=== PATIENT | female | born 1960 | race Caucasian/White ===

== ENCOUNTER → 2018-08-23 | Emergency (ER) | payer MEDICARE, OTHER ==
[~2018-08-23] VITALS: Ht 175.3 cm; Wt 173.6 kg
[~2018-08-23] MED LIST: HYDR-4383 PO; HYDROcodone/acetaminophen 10/325mg tab PO ONE; LIDOcaine 1% w/epiNEPHrine 1:200,000 30ml vial IM ONE
[2018-08-23 14:48] VITALS: BP 150/82
== END | disposition home or self-care (01) ==
LOC: ER 14:19
DX: K04.7 Periapical abscess without sinus (principal); K03.81 Cracked tooth; J45.909 Unspecified asthma, uncomplicated; E03.9 Hypothyroidism, unspecified; M19.90 Unspecified osteoarthritis, unspecified site; Z98.890 Other specified postprocedural states; Z88.1 Allergy status to other antibiotic agents; Z79.899 Other long term (current) drug therapy
CPT/HCPCS: 41800; 99283; J3490; 10060

== ENCOUNTER 2018-09-06 14:08 | Emergency (ER) | payer MEDICARE, OTHER ==
[~2018-09-06] VITALS: Ht 175.3 cm; Wt 172.7 kg
[~2018-09-06 14:08] MED LIST changes: -HYDROcodone/acetaminophen 10/325mg tab PO ONE; -LIDOcaine 1% w/epiNEPHrine 1:200,000 30ml vial IM ONE
[2018-09-06 17:11] LABS: BASOPHILS # (AUTO) 0.1 X10'3 (0-0.2); BASOPHILS % (AUTO) 0.7 % (0-1); EOSINOPHILS # (AUTO) 0.3 X10'3 (0-0.9); EOSINOPHILS % (AUTO) 3.9 % (0-6); HEMATOCRIT 40.5 % (35.0-45.0); HEMOGLOBIN 13.2 g/dl (12.0-16.0); LYMPHOCYTES # (AUTO) 2.4 X10'3 (1.1-4.8); LYMPHOCYTES % (AUTO) 32.5 % (21-51); MEAN CORPUSCULAR HEMOGLOBIN 27.4 PG (27.0-31.0); MEAN CORPUSCULAR HGB CONC 32.7 g/dL (33.0-36.5); MEAN CORPUSCULAR VOLUME 83.8 FL (78-98); MEAN PLATELET VOLUME 8.9 FL (7.4-10.4); MONOCYTES # (AUTO) 0.5 X10'3 (0-0.9); MONOCYTES % (AUTO) 6.4 % (2-12); NEUTROPHILS # (AUTO) 4.1 X10'3 (1.8-7.7); NEUTROPHILS % (AUTO) 56.5 % (42-75); PLATELET COUNT 268 X10'3 (140-440); RED BLOOD COUNT 4.83 X10'6 (4.20-5.60); RED CELL DISTRIBUTION WIDTH 13.2 % (11.5-14.5); WHITE BLOOD COUNT 7.3 X10'3 (4.5-11.0)
[2018-09-06 17:25] LABS: ALANINE AMINOTRANSFERASE 66 U/L (12-78); ALBUMIN 3.5 G/DL (3.4-5.0); ALBUMIN/GLOBULIN RATIO 0.9 (1.1-1.5); ALKALINE PHOSPHATASE 82 IU/L (46-116); ANION GAP 6 (8-16); ASPARTATE AMINO TRANSFERASE 41 U/L (10-37); BILIRUBIN,TOTAL 0.5 MG/DL (0.1-1.0); BLOOD UREA NITROGEN 17 MG/DL (7-18); BUN/CREATININE RATIO 27.9 (6.6-38.0); CALCIUM 9.5 MG/DL (8.5-10.1); CHLORIDE 105 MMOL/L (99-107); CREATININE 0.61 MG/DL (0.40-0.90); GLUCOSE 116 MG/DL (70-104); SODIUM 141 MMOL/L (135-145); TOTAL CARBON DIOXIDE 29.7 MMOL/L (24-32); TOTAL PROTEIN 7.5 G/DL (6.4-8.2); eGFR > 90 ML/MIN
[2018-09-06] MEDS ORDERED: DOXY100C43 PO (17:55)
[2018-09-06 18:20] VITALS: BP 158/81
== END 2018-09-06 18:27 | disposition home or self-care (01) ==
LOC: ER 14:08
DX: S91.012A Laceration without foreign body, left ankle, initial encounter (principal); L03.116 Cellulitis of left lower limb; J45.909 Unspecified asthma, uncomplicated; E03.9 Hypothyroidism, unspecified; M19.90 Unspecified osteoarthritis, unspecified site; Z88.1 Allergy status to other antibiotic agents; X58.XXXA Exposure to other specified factors, initial encounter; Y93.89 Activity, other specified; Y92.89 Other specified places as the place of occurrence of the external cause; Y99.8 Other external cause status
CPT/HCPCS: 36415; 80053; 85025; 99283

== ENCOUNTER 2020-12-26 15:06 | Observation (INO) | payer MEDICARE, OTHER ==
[~2020-12-26] VITALS: Ht 175.3 cm; Wt 175.8 kg
--- NOTE | 2020-12-26 16:22 | NUR ---
Patient is awaiting a main bed in ED for a cardiac workup. order checker packer processer is working on this. This patient will be moved GAB[facility].
[2020-12-26] MEDS ORDERED: aspirin 81mg tab.chew PO ONE (16:25)
[2020-12-26] MEDS ORDERED: nitroGLYCERIN 0.4mg SUBLingual tab SL PRN ×2 (16:25→17:15)
--- NOTE | 2020-12-26 16:30 | NUR ---
ASA given, chew and swallow. Labs are being drawn.
[2020-12-26 16:47] LABS: BASOPHILS % (AUTO) 0.5 % (0-1); EOSINOPHILS # (AUTO) 0.3 X10'3 (0-0.9); EOSINOPHILS % (AUTO) 4.6 % (0-6); HEMATOCRIT 43.6 % (35.0-45.0); HEMOGLOBIN 14.3 g/dl (12.0-16.0); LYMPHOCYTES # (AUTO) 2.4 X10'3 (1.1-4.8); LYMPHOCYTES % (AUTO) 34.8 % (21-51); MEAN CORPUSCULAR HEMOGLOBIN 27.9 PG (27.0-31.0); MEAN CORPUSCULAR HGB CONC 32.8 g/dL (33.0-36.5); MEAN PLATELET VOLUME 8.6 FL (7.4-10.4); MONOCYTES # (AUTO) 0.5 X10'3 (0-0.9); MONOCYTES % (AUTO) 7.7 % (2-12); NEUTROPHILS # (AUTO) 3.7 X10'3 (1.8-7.7); NEUTROPHILS % (AUTO) 52.4 % (42-75); PLATELET COUNT 244 X10'3 (140-440); RED BLOOD COUNT 5.13 X10'6 (4.20-5.60); RED CELL DISTRIBUTION WIDTH 13.3 % (11.5-14.5)
[2020-12-26 16:58] LABS: ALANINE AMINOTRANSFERASE 54 U/L (12-78); ALBUMIN 3.6 G/DL (3.4-5.0); ALBUMIN/GLOBULIN RATIO 0.8 (1.1-1.5); ALKALINE PHOSPHATASE 74 IU/L (46-116); ANION GAP 8 (8-16); ASPARTATE AMINO TRANSFERASE 37 U/L (10-37); BILIRUBIN,TOTAL 0.5 MG/DL (0.1-1.0); BLOOD UREA NITROGEN 12 MG/DL (7-18); BUN/CREATININE RATIO 18.2 (6.6-38.0); CHLORIDE 107 MMOL/L (99-107); CREATININE 0.66 MG/DL (0.40-0.90); GLUCOSE 103 MG/DL (70-104); SODIUM 144 MMOL/L (135-145); TOTAL PROTEIN 7.9 G/DL (6.4-8.2); eGFR > 90 ML/MIN
[2020-12-26] MEDS ORDERED: metoprolol tartrate 1mg/ml inj IV PRN (17:15)
[2020-12-26] MEDS ORDERED: magnesium hydroxide 30ml (MOM) UD suspension PO PRN (17:15)
[2020-12-26] MEDS ORDERED: regadenoson 0.4mg/5ml syringe IV PRN (17:15)
[2020-12-26] MEDS ORDERED: mag hydrox/Alum hydrox/simeth 30ml oral suspension PO PRN (17:15)
[2020-12-26] MEDS: normal saline 1000ml 1,000 ML IV SCH (17:15)
[2020-12-26] MEDS ORDERED: morphine 2 MG/ML inj. syringe IV PRN ×2 (17:15)
[2020-12-26] MEDS ORDERED: ondansetron/PF 4mg/2ml inj IV PRN (17:15)
[2020-12-26] MEDS ORDERED: aminophylline 250mg/10ml inj. IV PRN (17:15)
[2020-12-26] MEDS ORDERED: acetaminophen 325mg tablet PO PRN (17:15)
[2020-12-26] MEDS ORDERED: NO HOME MEDS (17:28)
[2020-12-26] MEDS: docusate sod 100mg capsule PO SCH (20:00)
[2020-12-26] MEDS: heparin, porcine 5000 units/ml vial SQ SCH (20:56)
[2020-12-27] VITALS (9 sets, daily range): BP systolic 110–138; BP diastolic 53–82
[2020-12-27] MEDS: normal saline 1000ml 1,000 ML IV SCH ×2 (03:15→11:51)
--- NOTE | 2020-12-27 07:30 | NUR ---
Report attempted, TELLO Vincent to call back.
[2020-12-27 07:52] LABS: BASOPHILS % (AUTO) 0.7 % (0-1); EOSINOPHILS # (AUTO) 0.3 X10'3 (0-0.9); EOSINOPHILS % (AUTO) 4.3 % (0-6); HEMATOCRIT 42.7 % (35.0-45.0); HEMOGLOBIN 14.1 g/dl (12.0-16.0); LYMPHOCYTES % (AUTO) 32.8 % (21-51); MEAN CORPUSCULAR HEMOGLOBIN 28.1 PG (27.0-31.0); MEAN CORPUSCULAR VOLUME 85.1 FL (78-98); MEAN PLATELET VOLUME 8.3 FL (7.4-10.4); MONOCYTES # (AUTO) 0.4 X10'3 (0-0.9); MONOCYTES % (AUTO) 6.6 % (2-12); NEUTROPHILS # (AUTO) 3.3 X10'3 (1.8-7.7); NEUTROPHILS % (AUTO) 55.6 % (42-75); PLATELET COUNT 235 X10'3 (140-440); RED BLOOD COUNT 5.02 X10'6 (4.20-5.60); RED CELL DISTRIBUTION WIDTH 13.2 % (11.5-14.5)
--- NOTE | 2020-12-27 07:57 | NUR ---
Received patient report via phone from Lenka RN in ER. Called Nuc med they will come get patient at 0830 patient advised [facility]uc Med patient will be in room 0471S
[2020-12-27] MEDS ORDERED: aspirin 325mg tablet, delayed-release (Ecotrin) PO SCH (08:00)
[2020-12-27] MEDS: heparin, porcine 5000 units/ml vial SQ SCH (08:00)
[2020-12-27 08:23] LABS: ALBUMIN 3.6 G/DL (3.4-5.0); ANION GAP 8 (8-16); BLOOD UREA NITROGEN 14 MG/DL (7-18); BUN/CREATININE RATIO 21.9 (6.6-38.0); CHLORIDE 106 MMOL/L (99-107); CREATININE 0.64 MG/DL (0.40-0.90); GLUCOSE 117 MG/DL (70-104); POTASSIUM 4.2 MMOL/L (3.5-5.1); SODIUM 143 MMOL/L (135-145); TOTAL CARBON DIOXIDE 28.8 MMOL/L (24-32); eGFR > 90 ML/MIN
[2020-12-27 09:20] LABS: D-DIMER 0.63 MG/L FEU (0-0.50)
[2020-12-27] MEDS: docusate sod 100mg capsule PO SCH (12:00)
[2020-12-27 14:03] LABS: CHOL/HDL RATIO 3.1 (0.00-4.99); CHOLESTEROL 163 MG/DL (0-200); HDL CHOLESTEROL 53 MG/DL (35-60); LDL CHOLESTEROL 76 MG/DL (50-100); TRIGLYCERIDES 139 MG/DL (20-135)
--- NOTE | 2020-12-27 14:46 | NUR ---
PAGER ID: [phone] MESSAGE: Melisa-Deshawn [phone] Re: Kimi Dove saw patient per notes sounds like patient wants to do medical management. Patient would like to know if she can eat and the plan.
--- NOTE | 2020-12-27 15:10 | NUR ---
PAGER ID: [phone] MESSAGE: SaidaArnel [phone] Re: Duke Dove patient really really wants to eat and go home
[2020-12-27] MEDS ORDERED: ASPI-1071 PO (15:21)
--- NOTE | 2020-12-27 16:22 | NUR ---
Patient was under the impression that she was going to need to go home on Metoprolol. Spoke to Kimi HANCOCK for Dr Zavala patient is normal tensive and does not need any medication at this time she needs to follow up with a loan review manager. Patient made aware.
--- NOTE | 2020-12-27 17:00 | NUR ---
Patient discharge instructions reviewed with patient and patient verbalized understanding. Patients IV dc'd cannula intact. Patients Tele dc'd for discharged. Patient taken to vehicle via wheelchair where daughter was picking her up .
== END 2020-12-27 16:48 | disposition home or self-care (01) ==
LOC: ER 15:07 → ED HOLD 17:18 → PCU 3S 12-27 08:15
PROVIDERS: ADMIT Family Medicine; ATTEND Family Medicine
DX: I20.9 Angina pectoris, unspecified (principal); I48.0 Paroxysmal atrial fibrillation; I10 Essential (primary) hypertension; E66.01 Morbid (severe) obesity due to excess calories; G47.33 Obstructive sleep apnea (adult) (pediatric); M79.7 Fibromyalgia; J45.909 Unspecified asthma, uncomplicated; E03.9 Hypothyroidism, unspecified; F32.9 Major depressive disorder, single episode, unspecified; M19.90 Unspecified osteoarthritis, unspecified site; Z68.43 Body mass index [BMI] 50.0-59.9, adult; Z79.82 Long term (current) use of aspirin; Z88.1 Allergy status to other antibiotic agents
CPT/HCPCS: 36415; 71045; 78452; 80048; 80053; 80061; 83880; 84484; 85025; 85379; 93005; 93017; 93306; 96360; 96361; 96372; 99285; A9500; G0378; J1644; J2785; J7030

== ENCOUNTER 2025-04-06 06:35 | Emergency (ER) | payer MEDICARE, OTHER ==
[~2025-04-06] VITALS: Ht 175.3 cm; Wt 150.0 kg
[~2025-04-06 06:35] MED LIST changes: +ASPI-1071 PO; -HYDR-4383 PO
[2025-04-06 06:41] VITALS: TEMP 97.7
--- NOTE | 2025-04-06 07:30 | RADIOLOGY REPORT ---
CLINICAL INDICATION: trauma TECHNIQUE: DI KNEE 3 VWS right Comparison: None FINDINGS: Severe tricompartmental degenerative change. Small joint effusion. IMPRESSION: 1. No acute fracture or dislocation.
--- NOTE | 2025-04-06 07:58 | Physician Documentation ---
History of Present Illness ~ Chief Complaint: Knee Pain Stated Complaint: RIGHT KNEE PAIN M ALS Time Seen by MD: 06:42 OK to notify your PCP?: Yes Primary Medical Doctor: ALPA Source: patient, RN/MD, EMS, RN notes reviewed, old records Mode of Arrival: EMS Exam Limitations: no limitations HPI This pleasant 65-year-old female presents with 12 hours ago she was in severe pain unable to ambulate. She has had prior surgery to that knee. She is seen by [facility]. She presents with non weight-bearing activity she states her joint is loose. It is painful worse with movement non weight-bearing. She took some anti-inflammatories prior and this morning he is unable to ambulate she is now here for evaluation and care. Pain is sharp stabbing nonradiating Tetanus witin 5 years: Yes Medication Reconciliation Allergies: Coded Allergies: erythromycin base (Verified Allergy, Intermediate, rash, vomitting , 04/06/25) azithromycin (Verified Allergy, Unknown, 04/06/25) Scheduled Aspirin (Ecotrin*), 1 TAB PO DAILY Past Medical History Past Medical History: Asthma, Hypothyroidism, Arthritis, Depression Past Surgical History: , orthopedic surgeries Smoking Status: Never smoker Alcohol Use: None Drug Use: none Lives In: Home Review of Systems All Other Systems at this time: Reviewed and Negative Physical Exam Vital Signs: RN Vital Signs have been reviewed: Yes, Temperature: 97.7, Source: Oral, Heart Rate: 71, Respiratory Rate: 16, Pulse Oximetry: 97, Weight: 150.000 Oxygen Flow Rate: 0 Physical Exam General: The patient is well developed, well nourished, nontoxic appearing and is in no acute distress. Skin: Drain, warm and dry with no rashes. HEENT: Head was normocephalic and atraumatic. Eyes - pupils equal, round, reactive to light and accommodation. Extraocular movements were intact. Conjunctivae were nonicteric. Neck: Supple and nontender. There was no jugular venous distention, lymphadenopathy, thyromegaly or masses. Chest: Clear to auscultation bilaterally without wheezes, rales or rhonchi. No accessory muscle use. Heart: Rate regular and rhythmic. S1, S2. No murmurs. Palpation of the chest wall was normal. No rubs or thrills. Abdomen: Soft, nontender and nondistended. Positive bowel sounds. No guarding or rebound. Extremities: No cyanosis, clubbing or edema. The patient moves all extremities. Pulses were equal and symmetric. Right lower extremity no effusion no laxity of joint full range of motion passively nonweightbearing Neurologic: Motor sensory president back Psychologic: The patient was oriented to person, place and time. The patient demonstrated appropriate judgement and insight. Progress Results/Orders Reviewed/noted all lab results: Yes Results/Orders Orders - NICHOLAS GARIBAY MD Knee 3 Vws (04/06/25 06:42) Completed Orders - NICHOLAS GARIBAY MD Knee 3 Vws (04/06/25 06:42) Vital Signs 04/06/25 04/06/25 04/06/25 06:41 08:08 08:37 Temp 97.7 Pulse 71 62 62 Resp 16 16 14 B/P (MAP) 121/69 (86) 119/75 Pulse Ox 97 99 98 O2 Flow Rate 0 Re-Evaluation Re-Evaluation : Re-Evaluation: Improved Progress Patient was seen and examined. Patient was given reassurance. Patient received pain meds prior to arrival. X-ray was reassuring within normal limits. No signs of fracture effusion. Patient states she is not ambulatory nonweightbearing. Patient received a knee immobilizer crutches [id number] medications and discharged home. EKG/XRAY/CT/US/VASC/MRI Bone/Soft Tissue X-Ray (Ext.) : Interpreted By: both Views: 3 VIEW Additional Comment CLINICAL INDICATION: trauma TECHNIQUE: DI KNEE 3 VWS right Comparison: None FINDINGS: Severe tricompartmental degenerative change. Small joint effusion. IMPRESSION: 1. No acute fracture or dislocation. Electronically Signed by:LUIS WILSON MD Medical Decision Making Additional information obtaine: old records Findings Knee pain such as fractures frame strains infection General Diff Dx:Considerations: Include: Abrasion Knee Diff Dx:Considerations: Include: Abrasion, Contusion, DJD, Fracture-femur, Fracture-fibula, Fracture-patella, Fracture-tibia, Gout, Hematoma, Meniscus injury, Sprain, Sprain-MCL, Sprain-LCL, Sprain-ACL, Sprain-PCL, Other Ankle Diff Dx:Considerations: Include: Abrasion Foot Diff Dx:Considerations: Include: Abrasion Toe Diff Dx:Considerations: Include: Abrasion Departure Disposition: HOME / SELF CARE / HOMELESS Impression: Primary Impression: Knee pain Qualified Codes: M25.561 - Pain in right knee Condition: Stable Discharge Instructions: Acute Knee Pain, Adult Additional Instructions: Follow up with [facility] Anti-inflammatories [id number] for pain immobilize ice Referrals: NO PRIMARY CARE PROVIDER (PCP) Education Educated: Patient Educated regarding: diagnosis, treatment, prognosis, need for follow up, other Signature Scribe Signature: No scribed Attestation: The note accurately reflects work and decisions made by me.Nicholas Garibay MD 04/06/25 07:55 NICHOLAS GARIBAY MD Apr 06, 2025 07:58
[2025-04-06 08:37] VITALS: BP 119/75; PULSE 62; RESP 14; O2SAT 98
== END 2025-04-06 08:39 | disposition home or self-care (01) ==
LOC: ER 06:35
DX: M25.561 Pain in right knee (principal); E03.9 Hypothyroidism, unspecified; J45.909 Unspecified asthma, uncomplicated; M19.90 Unspecified osteoarthritis, unspecified site; F32.A Depression, unspecified; Z88.1 Allergy status to other antibiotic agents; Z79.82 Long term (current) use of aspirin
CPT/HCPCS: 29505; 73562; 99283

== ENCOUNTER 2025-05-04 12:55 | Emergency (ER) | payer MEDICARE, OTHER ==
[~2025-05-04] VITALS: Ht 175.3 cm; Wt 143.9 kg
[2025-05-04 13:05] VITALS: BP 173/74; PULSE 77; RESP 18; TEMP 98.4; O2SAT 99
[2025-05-04 13:38] LABS: CREATININE 0.73 MG/DL (0.40-0.90); MEAN PLATELET VOLUME 8.3 FL (7.4-10.4); RED CELL DISTRIBUTION WIDTH 13.2 % (11.5-14.5); TOTAL CARBON DIOXIDE 29.9 MMOL/L (24-32); eCRCL 82 ML/MIN; eGFR 81 ML/MIN
--- NOTE | 2025-05-04 14:05 | Physician Documentation ---
History of Present Illness ~ Chief Complaint: Bloody Emesis Stated Complaint: VOMITING BLOOD Time Seen by MD: 14:28 Primary Medical Doctor: ALPA MCADAMS This is a 65-year-old female who presents with concern for blood in vomit over the past month worse in the last week, patient reports blood is red streaked mixed with food and liquid, patient additionally reports dark stools and feeling of epigastric burning. 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 Medication Reconciliation Allergies: Coded Allergies: erythromycin base (Verified Allergy, Intermediate, rash, vomitting , 05/04/25) azithromycin (Verified Allergy, Unknown, 05/04/25) Scheduled Aspirin (Ecotrin*), 1 TAB PO DAILY Pantoprazole Sodium (PROTONIX tablet), 1 TAB PO DAILY Past Medical History Past Medical History: Asthma, Hypothyroidism, Arthritis, Depression Past Surgical History: , orthopedic surgeries Alcohol Use: None Drug Use: none Lives In: Home Review of Systems ROS As stated above in the HPI, otherwise all systems are reviewed and negative. Physical Exam Vital Signs: Temperature: 98.4, Source: Temporal, Heart Rate: 77, Respiratory Rate: 18, BP: 173/74, Pulse Oximetry: 99, Weight: 143.900 Oxygen Flow Rate: 0 Physical Exam VITALS: Reviewed and as above. GENERAL: Alert, no apparent distress. HEENT: Normocephalic, atraumatic, PERRL, EOMI, dry mucosa, no erythema RESPIRATORY: Lungs clear, normal breath sounds, no respiratory distress. CHEST: No accessory muscle use, no retractions CV: Regular rate, rhythm, no edema, no murmur, No: JVD GI: Soft, epigastric , bowels sounds present, no rebound, guarding, or rigidity BACK: No CVA tenderness, or swelling MUSCULOSKELETAL No deformities, no edema SKIN: Warm and dry, no rash NEURO: Oriented x4, No motor or sensory deficit PSYCH: Normal mood and affect, no agitation Progress Results/Orders Results/Orders Orders - OHLKEVYN INTERIANO MD Hemocult Set Up (05/04/25 ) C Diff Toxin (05/04/25 15:59) Completed Orders - KEVYN YU MD Hcg, Ur Ql (05/04/25 13:07) Cbc/Diff (05/04/25 13:07) BMP (05/04/25 13:07) Lipase (05/04/25 13:07) CMP (05/04/25 13:07) Ua W/Microscopic, Cult If Ind (05/04/25 14:01) Normal Saline 1000ml (0.9% Sodium Chlori (05/04/25 15:00) Ondansetron Inj. (Zofran 4mg/2ml Vial) (05/04/25 15:00) Medications Received in ER Medications (Trade) Dose Ordered Sig/Lana Route PRN Reason Start Time Stop Time Status Last Admin Dose Admin (0.9% sodium chloride (NS) 1000ml IV soln) 1,000 ml ONCE ONCE IVB 05/04/25 15:00 05/04/25 15:01 DC 05/04/25 16:12 1,000 ML (Zofran 4mg/2ml vial) 4 mg ONCE ONCE IV 05/04/25 15:00 05/04/25 15:01 DC 05/04/25 16:12 4 MG Vital Signs 05/04/25 05/04/25 13:05 14:56 Temp 98.4 Pulse 77 Resp 18 B/P (MAP) 173/74 Pulse Ox 99 O2 Flow Rate 0 Laboratory Tests Test 05/04/25 13:17 05/04/25 14:01 05/04/25 15:59 White Blood Count 9.9 Red Blood Count 5.42 Hemoglobin 14.8 Hematocrit 44.8 Mean Corpuscular Volume 82.6 Mean Corpuscular Hemoglobin 27.3 Mean Corpuscular Hemoglobin Concent 33.0 Red Cell Distribution Width 13.2 Platelet Count 312 Mean Platelet Volume 8.3 Neutrophils (%) (Auto) 75.1 H Lymphocytes (%) (Auto) 16.2 L Monocytes (%) (Auto) 6.2 Eosinophils (%) (Auto) 1.9 Basophils (%) (Auto) 0.6 Neutrophils # (Auto) 7.5 Lymphocytes # (Auto) 1.6 Monocytes # (Auto) 0.6 Eosinophils # (Auto) 0.2 Basophils # (Auto) 0.1 CBC Comment Sodium Level 142 Potassium Level 3.8 Chloride Level 105 Carbon Dioxide Level 29.9 Anion Gap 7 L Blood Urea Nitrogen 15 Creatinine 0.73 Estimated GFR/1.73 m2 81 BUN/Creatinine Ratio 20.5 H Glucose Level 122 H Calcium Level 9.2 Total Bilirubin 0.7 Aspartate Amino Transf (AST/SGOT) 17 Alanine Aminotransferase (ALT/SGPT) 20 Alkaline Phosphatase 73 Total Protein 8.0 Albumin 3.8 Globulin 4.2 Albumin/Globulin Ratio 0.9 L Lipase 44 Chemistry Comments Urine Specimen Description Non-specified Urine Color Yellow Urine Clarity Clear Urine pH 6.0 Urine Specific [place] <=1.005 Urine Protein 30 H Urine Glucose (UA) Negative Urine Ketones Negative Urine Occult Blood Negative Urine Nitrite Negative Urine Bilirubin Negative Urine Urobilinogen 0.2 Urine Leukocyte Esterase Negative Urine RBC 0-2 Urine WBC 0-4 Urine Squamous Epithelial Cells Few Urine Bacteria None seen Urine Mucus Few Urine Culture Indicated Not ind Volume Urine Centrifuged 10 ml Urine HCG, Qualitative Negative Urine Comment Medical Decision Making Findings MSE performed in triage and patient returned to ED lobby by nursing staff to await available ED room. Patient is hemodynamically stable and appropriate for ED lobby. The patient is seen by Dr. Yu, the patient has complaint of vomiting blood-tinged coffee-grounds for the last week as well as describing dark stool that she thinks appears coffee-ground colored the patient has no history of GI bleed she has been on chronic NSAIDs which he stopped a week ago she states the nausea vomiting has been more than 3 times a day for last week. She describes the pain as 3/10 she takes chronic pain meds for knee pain Departure Disposition: HOME / SELF CARE / HOMELESS Impression: Primary Impression: Vomiting Qualified Codes: R11.2 - Nausea with vomiting, unspecified Additional Impression: Diarrhea Qualified Codes: R19.7 - Diarrhea, unspecified Discharge Instructions: Diarrhea, Adult Referrals: NO PRIMARY CARE PROVIDER (PCP) Prescriptions Pantoprazole Sodium (PROTONIX tablet) 40 Mg Tablet. 1 TAB PO DAILY for 30 Days, #30 TAB 0 Refills Prov: KEVYN YU MD 05/04/25 LOKI WILLSON May 04, 2025 14:05 KEVYN YU MD May 04, 2025 15:07
[2025-05-04 14:33] LABS: LEUKOCYTE ESTERASE ,URINE NEGATIVE (Neg); NITRITES, URINE NEGATIVE (Neg); OCCULT BLOOD,URINE NEGATIVE (Neg)
[2025-05-04 14:35] LABS: UA COLLECTION TYPE NON-SPECIFIED; URINE HCG NEGATIVE (NEG)
[2025-05-04 14:42] LABS: MUCUS STRANDS FEW /LPF (Neg); SQUAMOUS EPITHELIAL CELL,UR FEW /LPF (FEW)
[2025-05-04] MEDS: ondansetron/PF 4mg/2ml inj IV ONE (16:12)
[2025-05-04] MEDS: normal saline 1000ML IV soln IVB ONE (16:12)
[2025-05-04] MEDS ORDERED: PANT-47 PO (16:34)
[2025-05-04 18:14] LABS: C DIFF ANTIGEN NEGATIVE (NEGATIVE); C DIFF SPECIMEN=DIARRHEA? ACCEPTABLE; C DIFFICILE TOXINS A&B NEGATIVE (Neg)
[2025-05-04] MEDS ORDERED: ONDA-243 PO (18:23)
== END 2025-05-04 17:21 | disposition home or self-care (01) ==
LOC: ER 12:55
DX: K92.0 Hematemesis (principal); R19.7 Diarrhea, unspecified; F32.A Depression, unspecified; G89.29 Other chronic pain; E03.9 Hypothyroidism, unspecified; M19.90 Unspecified osteoarthritis, unspecified site; Z88.1 Allergy status to other antibiotic agents; Z79.82 Long term (current) use of aspirin; Z79.899 Other long term (current) drug therapy; Z98.890 Other specified postprocedural states
CPT/HCPCS: 36415; 80053; 81001; 81025; 83690; 85025; 87324; 87449; 96374; 99283; J2405; J7030

== ENCOUNTER 2025-05-04 21:16 | Inpatient (IN) | payer MEDICARE, OTHER ==
[~2025-05-04] VITALS: Ht 177.8 cm; Wt 150.0 kg
[~2025-05-04 21:16] MED LIST changes: +ONDA-243 PO; +PANT-47 PO
[2025-05-04] MEDS: metoclopramide 5 mg/ml inj IV ONE (22:05)
--- NOTE | 2025-05-04 22:05 | Physician Documentation ---
History of Present Illness ~ Chief Complaint: Vomiting w/diarrhea Stated Complaint: VOMMITING Time Seen by MD: 22:03 OK to notify your PCP?: Yes Primary Medical Doctor: ALPA Source: patient Mode of Arrival: POV Exam Limitations: no limitations HPI 65 year old female patient presents to the ED for the second time today with complaints of nausea/vomiting. She was discharged earlier today and reports that as soon as she got home she started "violently vomiting again" which she has been doing for "several days". She reports symptoms of heartburn as well as intermittent diarrhea. She notes that she has taken 800mg of Ibuprofen 3x daily for the past 12 years for her knee and wonders if this is contributing to her symptoms at this time. Patient denies any other associated symptoms. Patient denies any other alleviating or exacerbating factors at this time. Medication Reconciliation Allergies: Coded Allergies: erythromycin base (Verified Allergy, Intermediate, rash, vomitting , 05/04/25) azithromycin (Verified Allergy, Unknown, 05/04/25) Scheduled Aspirin (Ecotrin*), 1 TAB PO DAILY Pantoprazole Sodium (PROTONIX tablet), 1 TAB PO DAILY Scheduled PRN ONDANSETRON ODT 4mg tablet (Ondansetron Odt), 1 TABLET PO Q6H PRN for nausea/vomiting Past Medical History Past Medical History: Asthma, Hypothyroidism, Arthritis, Depression Past Surgical History: , orthopedic surgeries Alcohol Use: None Drug Use: none Lives In: Home Review of Systems All Other Systems at this time: Reviewed and Negative ROS As stated above in the HPI, otherwise all systems are reviewed and negative. Physical Exam Vital Signs: RN Vital Signs have been reviewed: Yes, Weight: 150.000 Pulse Oximetry Reflects: adequate oxygenation Physical Exam General: Patient is awake, alert, oriented x4 in no acute distress and well appearing.~ Head: Normocephalic and atraumatic. Eyes: Conjunctival normal. EOMI. PERRL. ENT: Mucous membranes moist. Neck: Supple, trachea is midline. Chest: Clear to auscultation bilaterally without rales, rhonchi, or wheezes. There is no accessory muscle use or retractions. Cardiac: RRR without murmurs, gallops, or rubs. Abd: Diffuse abdominal tenderness without peritonitis. Soft, nondistended, with normoactive bowel sounds. No guarding, rebound, or rigidity. Extremities: Normal strength. Normal range of motion. No deformities or edema. Back: No midline spinal or CVA tenderness. Skin: Warm and dry with no significant rash appreciated. Neuro: Cranial nerves II-XII grossly intact. No focal neuro deficits. Patient ambulating without difficulty. Progress Progress Note 2351: Paging hospitalist. 0032: Resident hospitalist agrees to evaluate patient for admission. Results/Orders Results/Orders Orders - JEROME CORDOVA MD Saline Lock (05/04/25 21:17) Straight Cath For Urine Sample (05/04/25 21:17) Ultrasound Of Abdomen (05/04/25 22:23) Ct Abdomen Pelvis (05/04/25:25) Pantoprazole 40mg/Ns 100ml Bag (Protonix (05/04/25 23:55) Page Hospitalist (05/04/25 23:51) Fill Out Med Reconciliation (05/04/25 23:51) Completed Orders - JEROME CORDOVA MD Cbc/Diff (05/04/25 21:17) Metoclopramide Inj (Reglan Inj) (05/04/25 21:50) Hs Troponin I W Calculations (05/04/25 22:04) CMP (05/04/25 22:23) Lipase (05/04/25 22:23) Normal Saline 1000ml (0.9% Sodium Chlori (05/04/25 22:25) Morphine 4mg/Ml Inj. (Morphine Inj.) (05/04/25 22:25) Ct Abdomen Pelvis (05/04/25 22:25) Procalcitonin (05/04/25 22:25) Prochlorperazine Inj (Compazine Inj) (05/04/25 22:55) Diphenhydramine Inj (Benadryl Inj.) (05/04/25 22:55) Morphine 4mg/Ml Inj. (Morphine Inj.) (05/04/25 23:55) Ua W/Microscopic, Cult If Ind (05/05/25 00:50) Medications Received in ER Medications (Trade) Dose Ordered Sig/Lana Route PRN Reason Start Time Stop Time Status Last Admin Dose Admin (Reglan inj) 5 mg ONCE ONCE IV 05/04/25 21:50 05/04/25 21:51 DC 05/04/25 22:05 5 MG Sodium Chloride 1,000 ml @ 1,000 mls/hr ONCE ONCE IV 05/04/25 22:25 05/04/25 23:24 DC 05/04/25 22:53 1,000 MLS/HR (morphine inj.) 4 mg ONCE ONCE IV 05/04/25 22:25 05/04/25 22:27 DC 05/04/25 22:37 4 MG (Compazine inj) 10 mg ONCE ONCE IV 05/04/25 22:55 05/04/25 23:03 DC 05/04/25 23:31 10 MG (Benadryl inj.) 25 mg ONCE ONCE IV 05/04/25 22:55 05/04/25 22:56 DC 05/04/25 23:31 25 MG Pantoprazole Sodium 100 ml @ 20 mls/hr Q5H IV 05/04/25 23:55 05/04/25 23:55 20 MLS/HR (morphine inj.) 4 mg ONCE ONCE IV 05/04/25 23:55 05/04/25 23:56 DC 05/05/25 00:56 4 MG Vital Signs 05/04/25 05/04/25 23:22 23:39 Temp 97.7 Pulse 62 Resp 20 16 B/P (MAP) 200/95 (130) Pulse Ox 99 Laboratory Tests Test 05/04/25 21:49 05/04/25 22:49 White Blood Count 13.6 H Red Blood Count 5.82 H Hemoglobin 15.8 Hematocrit 48.1 H Mean Corpuscular Volume 82.6 Mean Corpuscular Hemoglobin 27.2 Mean Corpuscular Hemoglobin Concent 32.9 L Red Cell Distribution Width 13.1 Platelet Count 347 Mean Platelet Volume 8.6 Neutrophils (%) (Auto) 73.6 Lymphocytes (%) (Auto) 17.7 L Monocytes (%) (Auto) 7.1 Eosinophils (%) (Auto) 1.2 Basophils (%) (Auto) 0.4 Neutrophils # (Auto) 10.0 H Lymphocytes # (Auto) 2.4 Monocytes # (Auto) 1.0 H Eosinophils # (Auto) 0.2 Basophils # (Auto) 0.1 CBC Comment Chemistry Comments Sodium Level 142 Potassium Level 3.4 L Chloride Level 105 Carbon Dioxide Level 23.9 L Anion Gap 13 Blood Urea Nitrogen 13 Creatinine 0.81 Estimated GFR/1.73 m2 71 BUN/Creatinine Ratio 16.0 Glucose Level 137 H Calcium Level 9.6 Total Bilirubin 1.1 H Aspartate Amino Transf (AST/SGOT) 20 Alanine Aminotransferase (ALT/SGPT) 23 Alkaline Phosphatase 82 Troponin I High Sensitivity 9 Total Protein 8.7 H Albumin 4.1 Globulin 4.6 H Albumin/Globulin Ratio 0.9 L Lipase 47 Procalcitonin < 0.05 EKG/XRAY/CT/US/VASC/MRI CT : Interpreted By: radiologist CT: abdomen/pelvis With Contrast?: No Impression EXAM: CT CT ABDOMEN PELVIS HISTORY: abd pain COMPARISON STUDY: None TECHNIQUE: Multidetector CT of the abdomen and pelvis was performed from lung bases to pubic symphysis. Imaging was performed without IV contrast. Axial, coronal, and sagittal multiplanar reformats were obtained from the axial data set by the technologist. RADIATION DOSE: CTDI vol 36.3 mGy. DLP 2174.9 mGy.cm FINDINGS: Limited evaluation of the solid organs in the absence of IV contrast. Lungs: The lung bases are clear. Liver: Hepatomegaly measuring up to 22.6 cm. Spleen: Unremarkable. Pancreas: Unremarkable. Gallbladder: Prior cholecystectomy. Adrenals: Unremarkable Kidneys: Unremarkable. Pelvic Viscera: Unremarkable. Vasculature: Unremarkable. Retroperitoneum: Unremarkable. Bowel: Colonic diverticulosis with Mild stranding about a diverticulum in the sigmoid colon. No abscess. No bowel obstruction. Portions of the bowel are decompressed, limiting assessment. Musculoskeletal: Unremarkable. Soft tissues: Small fat containing ventral abdominal wall hernia. IMPRESSION: 1. Findings as above suggestive of mild acute sigmoid diverticulitis in the appropriate clinical setting. No abscess. 2. Additional findings as detailed. Electronically Signed by:FELICIA BENJAMIN MD Date & Time: 05/04/252336 Dictated by: FELICIA BENJAMIN MD Dictation date and time: 05/04/252336 Primary Care Provider: NO PRIMARY CARE PROVIDER cc: JEROME CORDOVA MD ~ Medical Decision Making Additional information obtaine: old records Findings Patient presents to the emergency room with vomiting that has per HPI. Differentials include but are not limited to upper GI bleed, ulcer, gastroenteritis, dehydration therefore labs and imaging performed. CT scan reassuring. Patient's pain that has mostly epigastric in nature and given CT scan findings of possible diverticulitis with the pain that has not correlate. Of concern is patient's reported coffee-ground emesis. Protonix initiated. Hemoglobin reassuring. Patient continues to be nauseated and vomiting. Diff Dx GI Bleed:Consideration: Include: AE fistula, Angiodysplasia, Bleeding diathesis, Blood loss anemia, Carcinoma, Diverticulosis, Diverticulitis, Esophageal varicies, Esophagitis, Gastritis, Gastroenteritis, Inflammatory BD, Octavia-Vieira syndrome, Meckel's diverticulum, PUD, Other Diff Dx Pain:Considerations: Include: AAA, -Complete, -Inco mplete, -Inevitable, -Missed, -Threatened, Abruptio placentae, Angina/PA, Aortic dissection, Appendicitis, Bowel obstruction, Cholangitis, Cholecystitis, Cholelithasis, Constipation, Diverticular disease, Dysmenorrhea, Ectopic , Esophageal rupture, Esophagitis, Gastritis/PUD, Gastroenteritis, GI hemorrhage, Hernia, Hepatitis, Inflammatory BD, Ischemic bowel, Mass, Ovarian cyst/torsion, Pancreatitis, PID, Porphyria, Trauma, intraabdominal, Urinary obstruction, Urinary tract infection, Urolithiasis, Other Diff Dx N/V/D:Considerations: Include: Appendicitis, Bowel obstruction, Dehy dration, DKA, Diarrhea - bacterial, Diarrhea - parasitic, Diarrhea - viral, Diverticulitis, Diverticulosis, Drug toxicity, Electrolyte imbalance, Food poisoning, Gastroenteritis, GE reflux, GI bleed, Hepatitis, Hernia, Hypovolemia, Hypotension, Inflammatory BD, Impaction, Malnutrition, Pancreatitis, , PUD, Renal failure, Urolithiasis, Urinary obstruction, UTI, Other Diff Dx Rectal:Considerations: Include: Fissure, Fistula, Foreign body, Impaction, Perirectal abscess, Rectal prolapse, Subcutaneous abscess, Thrombosed hemorrhoid, Ulcer, UTI, Other Departure Time of Disposition: 23:51 Disposition: 09 ADMITTED INPATIENT Admitted to Inpatient Unit: yes, to hospitalist Impression: Primary Impression: suspected upper GI bleed Additional Impression: Gastroenteritis Condition: Guarded Referrals: NO PRIMARY CARE PROVIDER (PCP) Signature Scribe Signature: Scribed for Jerome Cordova MD by Bell Read . 05/04/25 23:50 Attestation: The note accurately reflects work and decisions made by me.Jerome Cordova MD 05/05/25 02:43 JEROME CORDOVA MD May 04, 2025 22:05 BELL COMER May 04, 2025 23:51
[2025-05-04 22:06] LABS: MEAN PLATELET VOLUME 8.6 FL (7.4-10.4); RED CELL DISTRIBUTION WIDTH 13.1 % (11.5-14.5)
[2025-05-04] MEDS: morphine 4 MG/ML inj SYRINge IV ONE (22:37)
[2025-05-04] MEDS: normal saline 1000ml 1,000 ML IV ONE (22:53)
[2025-05-04 23:22] LABS: CREATININE 0.81 MG/DL (0.40-0.90); TOTAL CARBON DIOXIDE 23.9 MMOL/L (24-32); eCRCL 77 ML/MIN; eGFR 71 ML/MIN
--- NOTE | 2025-05-04 23:40 | RADIOLOGY REPORT ---
EXAM: CT CT ABDOMEN PELVIS HISTORY: abd pain COMPARISON STUDY: None TECHNIQUE: Multidetector CT of the abdomen and pelvis was performed from lung bases to pubic symphysis. Imaging was performed without IV contrast. Axial, coronal, and sagittal multiplanar reformats were obtained from the axial data set by the technologist. RADIATION DOSE: CTDI vol 36.3 mGy. DLP 2174.9 mGy.cm FINDINGS: Limited evaluation of the solid organs in the absence of IV contrast. Lungs: The lung bases are clear. Liver: Hepatomegaly measuring up to 22.6 cm. Spleen: Unremarkable. Pancreas: Unremarkable. Gallbladder: Prior cholecystectomy. Adrenals: Unremarkable Kidneys: Unremarkable. Pelvic Viscera: Unremarkable. Vasculature: Unremarkable. Retroperitoneum: Unremarkable. Bowel: Colonic diverticulosis with Mild stranding about a diverticulum in the sigmoid colon. No abscess. No bowel obstruction. Portions of the bowel are decompressed, limiting assessment. Musculoskeletal: Unremarkable. Soft tissues: Small fat containing ventral abdominal wall hernia. IMPRESSION: 1. Findings as above suggestive of mild acute sigmoid diverticulitis in the appropriate clinical setting. No abscess. 2. Additional findings as detailed.
[2025-05-04] MEDS: pantoprazole 40MG/NS 100ML BAG 100 ML IV SCH (23:55)
[2025-05-05] VITALS (18 sets, daily range): BP systolic 107–180; BP diastolic 57–91; PULSE 57–92; RESP 14–24; TEMP 97.8–99.6; O2SAT 95–99
[2025-05-05] MEDS ORDERED: magnesium sulf-water 4G/100mL 100 ML IV PRN (00:25)
[2025-05-05] MEDS ORDERED: potassium Cl 20 mEq SR tablet PO PRN ×2 (00:25)
[2025-05-05] MEDS ORDERED: magnesium Cl slow-release 64mg tablet PO PRN (00:25)
[2025-05-05] MEDS ORDERED: magnesium hydroxide 30ml (MOM) UD suspension PO PRN (00:25)
[2025-05-05] MEDS ORDERED: magnesium sulf-water 2g/50mL 50 ML IV PRN (00:25)
[2025-05-05] MEDS ORDERED: ondansetron/PF 4mg/2ml inj IV PRN (00:25)
[2025-05-05] MEDS ORDERED: potassium Cl 40MEQ/1/2NS 520ml 520 ML IV PRN (00:25)
[2025-05-05] MEDS ORDERED: HYDROcodone/acetaminophen 5mg/325mg tablet PO PRN (00:25)
[2025-05-05] MEDS ORDERED: mag hydrox/Alum hydrox/simeth 30ml oral suspension PO PRN (00:25)
--- NOTE | 2025-05-05 00:53 | HISTORY AND PHYSICAL-Residence ---
History & Physical Providers to CC Resident Creating Document: LOLA NEWBY, RES CC: TASHI LYN MD ~ History of Present Illness Primary Medical Doctor: [facility] Reason for Admit\Complaint: Abdominal pain, nausea and vomiting History of Present Illness A 65-year-old female with a past medical history of HTN, hypothyroidism and MARY on CPAP at night presented to the ED presented to the ED in view of abdominal pain, nausea and vomitings that has present since a month. Patient had dull/burning type of pain in the upper epigastrium with a severity of 5/10 with no radiation, no aggravating or relieving factors that has been present over a month that has gradually worsening to the point of reaching out to the hospital. Patient has associated nausea and vomitings over a month, had about 15-20 episodes of vomitings today which had only liquid. Patient endorses loss of appetite and 78 lb of weight loss over a period of one month. Patient also endorses associated intermittent diarrhea which is alternating with lose formed and watery, doubt if it is bloody diarrhea. Patient has on and off fever with associated chills and rigors over a month, temperature has never been documented. Patient endorses reflux symptoms and questionable black tarry stools. Patient denies consumption of iron pills. Patient consumes 800 mg of ibuprofen 3 times a day for many years now. Patient denies travel history, sick contacts or similar symptoms in the family. Patient never underwent gastric sleeve surgery. No similar history in the past. Patient denies colonoscopy or upper GI endoscopy in the past. Patient is scheduled for colonoscopy in May at [facility]. Allergies: Coded Allergies: erythromycin base (Verified Allergy, Intermediate, rash, vomitting , 05/04/25) azithromycin (Verified Allergy, Unknown, 05/04/25) Home Medications Home Medications Active Ondansetron Odt (Ondansetron HCl) 4 Mg Tab.rapdis 1 Tablet PO Q6H PRN PROTONIX tablet (Pantoprazole Sodium) 40 Mg Tablet.dr 1 Tab PO DAILY 30 Days Ecotrin* (Aspirin) 81 Mg Tablet.dr 1 Tab PO DAILY Past Medical History Past Medical History HTN Hypothyroidism Obstructive sleep apnea on CPAP at night Past Surgical History Surgical History Comment Cholecystectomy Past Social History Social History Comment Denies smoking, illicit drug use, alcohol use Endorses marijuana use Alcohol Use: None Drug Use: None Lives In: Home ROS ROS Constitutional: No fever, chills, dizziness, weight gain or loss Eyes: No pain, erythema, discharge, blurring of vision ENT: No sore throat, epistaxis, tinnitus Cardiovascular: No Shortness of breath. Chest pressure, chest discomfort, palpitations, syncope, lower extremity edema, paroxysmal nocturnal dyspnea Respiratory: No Shortness of breath and cough present, No hemoptysis Gastrointestinal: Decreased appetite, black tarry stools, nausea, vomitings, diarrhea, abdominal pain, reflux symptoms Musculoskeletal: No chronmic edema. Integumentary: No change in skin, hair, nails. No swelling, bruising, abrasions Neurologic: No headache, neck pain, numbness or tingling of the extremities, weakness Psychiatric: No delusions, depression, loss of interest in normal activity or change in sleep pattern, hallucinations, suicidal ideations Endocrine: No fatigue, weakness, polydipsia, polyuria, change in appetite, heat or cold intolerance, sweating, dry skin Exam Vitals: Vital Signs Date Time Temp Pulse Resp B/P (MAP) Pulse Ox O2 Delivery O2 Flow Rate FiO2 05/04/25 23:39 16 05/04/25 23:22 97.7 62 200/95 (130) 99 General: General: Morbidly obese middle-aged woman, Alert, awake, oriented, not in acute distress HEENT: PERRLA, no icterus, pallor, lymphadenopathy, carotid bruit Respiratory system: Bilateral vesicular breath sounds heard, no adventitious breath sounds CVS: S1-S2 heard, no murmurs/rubs/gallop GI: Tenderness in the upper epigastrium, Soft, no organomegaly, no guarding/rigidity, bowel sounds present Neuro: No focal neurological deficits present Mental status exam: alert and consciousness, orientation, memory, speech - Cranial nerve test: Cranial nerves 2-12 intact - Motor system: Nutrition, Tone 3+, Power 5/5, no involuntary movements - Sensory system: Intact - Reflex testing: Biceps, triceps and knee reflexes 2+ - Cerebellar: Normal Extremities: No edema cyanosis clubbing/deformities Skin: Warm and dry Diagnostic Data Last Recorded Lab Results: 05/04/25214805/04/255 Advance Care Planning Advanced Care plannin - 30 Minutes (I spent 20 minutes discussing various resuscitative measures and the patient decided to be full code) Additional Plan Assessment: A 65-year-old female with PMH of HTN hypothyroidism presented to the ED in view of abdominal pain, nausea vomitings and diarrhea since one month. Patient is admitted for the evaluation management of acute sigmoid diverticulitis and possible GERD/gastritis with possible upper GI bleed. Plan: Acute colonic diverticulitis Mild leukocytosis CT abdomen pelvis: Colonic diverticulosis with Mild stranding about a diverticulum in the sigmoid colon Normal procalcitonin, lipase levels Follow up with CRP Patient is started on IV ciprofloxacin 400 mg q.12h, IV metronidazole 500 mg q.8h in view of intractable abdominal pain Pain management, IV Zofran 4 mg q.6h for nausea and vomitings IV fluids at 100 cc/hour Patient might benefit from outpatient colonoscopy Possible upper GI bleed Probably secondary to chronic gastritis from NSAID use H/H stable Follow up with stool occult Patient is started on IV Protonix 40 mg b.i.d. GI consult in a.m. NPO after midnight Hypertensive urgency Elevated systolic blood pressure: 200/95 IV labetalol 10 mg one time dose IV labetalol Q 10 minutes p.r.n. for systolic blood pressure greater than 180 mmHg Continue to monitor vitals Erythrocytosis HCT: 48.1 Probably secondary to dehydration Continue to monitor CBC HTN Patient is not on any antihypertensive at home Consider starting the patient on Sj/ARB or calcium channel blockers once the blood pressure stabilizes Adequate pain management Hypothyroidism Follow up with TSH MARY CPAP at night daily Morbid obesity Outpatient follow up Code status: Full code Diet: Clear liquid diet, NPO after midnight DVT prophylaxis: Heparin Disposition: Admit to surgical unit, NPO after midnight, GI consult in a.m./EGD in a.m. Lola Newby MD Internal Medicine, PGY 2 Date of Service: May 05, 2025 Billing Provider: TASHI LYN MD, SIVA, RES May 05, 2025 00:53
[2025-05-05] MEDS: morphine 4 MG/ML inj SYRINge IV ONE (00:56)
[2025-05-05] MEDS ORDERED: labetalol 20mg/4ml (5mg/ml) syringe IV ONE (01:00)
[2025-05-05 01:36] LABS: LEUKOCYTE ESTERASE ,URINE NEGATIVE (Neg); NITRITES, URINE NEGATIVE (Neg); OCCULT BLOOD,URINE NEGATIVE (Neg)
[2025-05-05 01:37] LABS: UA COLLECTION TYPE CLN CATCH MIDSTREAM
[2025-05-05 01:49] LABS: SQUAMOUS EPITHELIAL CELL,UR MODERATE /LPF (FEW)
[2025-05-05] MEDS: labetalol 20mg/4ml (5mg/ml) syringe IV PRN (02:07)
[2025-05-05] MEDS: ondansetron/PF 4mg/2ml inj IV PRN (03:02)
[2025-05-05] MEDS: hydrALAZINE 20mg/ml inj. IV ONE (03:02)
[2025-05-05] MEDS: metroNIDAZOLE-Flagyl 500mg/NS 100 ML IV SCH (03:52)
[2025-05-05] MEDS: normal saline 1000ml 1,000 ML IV SCH (05:26)
[2025-05-05] MEDS: ciprofloxacin lact 400MG/200ML 200 ML IV SCH (05:26)
[2025-05-05] MEDS: metoclopramide 5 mg/ml inj IV ONE (05:52)
[2025-05-05] MEDS: morphine 4 MG/ML inj SYRINge IV PRN (05:53)
[2025-05-05] MEDS ORDERED: metroNIDAZOLE-Flagyl 500mg/NS 100 ML IV SCH (07:10)
[2025-05-05] MEDS ORDERED: ciprofloxacin lact 400MG/200ML 200 ML IV SCH (07:10)
--- NOTE | 2025-05-05 07:38 | ELECTROCARDIOGRAPH REPORT ---
[facility] Test Date: 2025-05-04 Test Time: 21:29:38 Pat Name: ZACKERY CARRINGTON Department: EMERGENCY ROOM Room: [place] [address] A Gender: F Warning Analyst: : 1960 Requested By: TASHI LYN Order Number: [id number] Reading MD: Dr. Nicholas Angela Measurements Intervals [place] Rate: 66 P: 81 CA: 165 QRS: 113 QRSD: 116 T: 79 QT: 460 QTc: 482 Interpretive Statements Sinus rhythm Nonspecific intraventricular conduction delay Low voltage, precordial leads Baseline wander in lead(s) II,III,aVR,aVF,V3,V4 Electronically Signed On 05-06-2025 21:14:[address] Nicholas Angela Please click the below link to view image of tracing.
[2025-05-05] MEDS: docusate sod 100mg capsule PO SCH (08:00)
[2025-05-05] MEDS: K and/or MAG REPLACEMENT MC SCH (08:00)
[2025-05-05] MEDS: heparin, porcine 5000 units/ml vial SQ SCH (08:11)
[2025-05-05 08:16] LABS: MEAN PLATELET VOLUME 8.6 FL (7.4-10.4); RED CELL DISTRIBUTION WIDTH 13.2 % (11.5-14.5)
[2025-05-05 08:39] LABS: CREATININE 0.98 MG/DL (0.40-0.90); TOTAL CARBON DIOXIDE 25.0 MMOL/L (24-32); eCRCL 64 ML/MIN; eGFR 57 ML/MIN
[2025-05-05] MEDS: normal saline 1000ml 1,000 ML IV ONE (09:55)
--- NOTE | 2025-05-05 11:26 | CONSULTATION REPORT - RESIDENT ---
Consult Providers to CC Resident Creating Document: CLAUDIA EUGENE RES History of Present Illness Reason for Admit\Complaint: Acute diverticulitis, vomiting and diarrhea since 1 month History of Present Illness A 65-year-old female with past medical history of hypertension, hypothyroidism, obstructive sleep apnea on nightly CPAP and morbid obesity, presented to the ED with one month of gastrointestinal symptoms, including watery diarrhea, nausea, vomiting, epigastric pain and profound unintentional weight loss (78 lb). Symptoms began shortly after being prescribed metronidazole for bacterial vaginosis (took only 2 days), after which she developed intermittent watery diarrhea and vomiting, sometimes with food particles. Diarrhea persists intermittently; the patient had one watery bowel movement today in the hospital. She occasionally notes pink-tinged stools, but denies gerardo blood. Vomiting frequency increased on presentation (1520 episodes, liquid). She reports dull/burning epigastric pain (5/10), reflux symptoms, and questionable melena. She endorses poor oral intake and marked weight loss, as well as intermittent subjective fevers with chills, though temperatures were not documented. Chronic NSAID use (ibuprofen 800 mg TID for 12 years) is noted. No prior EGD or colonoscopy; outpatient colonoscopy is scheduled for May. On presentation, vitals demonstrated hypertensive urgency, labs revealed mild leukocytosis and mildly elevated lactic acid, and CT abdomen/pelvis demonstrated mild uncomplicated sigmoid diverticulitis. She was started on IV ciprofloxacin and metronidazole. She is currently NPO and underwent EGD today. Allergies: Coded Allergies: erythromycin base (Verified Allergy, Intermediate, rash, vomitting , 05/04/25) azithromycin (Verified Allergy, Unknown, 05/04/25) Home Medications Home Medications Active Ondansetron Odt (Ondansetron HCl) 4 Mg Tab.rapdis 1 Tablet PO Q6H PRN PROTONIX tablet (Pantoprazole Sodium) 40 Mg Tablet. 1 Tab PO DAILY 30 Days Ecotrin* (Aspirin) 81 Mg Tablet.dr 1 Tab PO DAILY Past Medical History Past Medical History Hypertension Hypothyroidism Obstructive sleep apnea on CPAP Morbid obesity Past Surgical History Surgical History Comment Cholecystectomy Past Social History Social History Comment Denies tobacco use Denies alcohol use Denies illicit drug use Endorses marijuana use for sleep Lives at home with the SHO ROS Reviewed in full. All negative except for pertinent positive HPI. Exam Vitals: Vital Signs Date Time Temp Pulse Resp B/P (MAP) Pulse Ox O2 Delivery O2 Flow Rate FiO2 05/05/25 08:26 16 05/05/25 05:35 99.6 60 180/91 (120) 95 Room Air 05/05/25 04:30 0 General: General: Morbidly obese middle-aged woman, alert, awake, oriented, in no acute distress HEENT: PERRLA, no scleral icterus, pallor, lymphadenopathy, or carotid bruits Cardiovascular: Regular rate and rhythm, S1 and S2 present, no murmurs, rubs, or gallops Respiratory: Clear to auscultation bilaterally, no wheezes, rales, or rhonchi Abdomen: Soft, mild tenderness in the epigastric region, no rebound or guarding, no organomegaly, bowel sounds present Neurologic: No focal neurologic deficits; cranial nerves IIXII intact Extremities: No edema, cyanosis, or clubbing Skin: Warm and dry Diagnostic Data Last Recorded Lab Results: 05/05/25 0742 05/05/25 0742 Additional Plan 65-year-old female with chronic watery diarrhea, nausea/vomiting, epigastric pain, weight loss, chronic NSAID use and mild uncomplicated sigmoid diverticulitis. Likely multifactorial diarrhea (antibiotic-associated, NSAID- related, infectious) with upper GI pathology under evaluation. 1. Chronic Watery Diarrhea Persistent watery diarrhea >1 month, temporally associated with brief metronidazole exposure. Differential: antibiotic-associated diarrhea, C. difficile, other infectious causes, NSAID enteropathy, inflammatory bowel disease, malabsorption Elevated lactic acid, probably secondary to severe dehydration; ordered IV bolus 1000 mL, followed by maintenance fluid at 100 cc/hour Plan: Stool studies: C. difficile PCR Stool culture Stool O&P Fecal leukocytes Hold metronidazole due to suspected drug intolerance Maintain IV fluids for hydration Avoid anti-diarrheals until infection ruled out Ordered Augmentin 875-125 mg for 5 days Monitor CBC daily; procalcitonin negative 2. Nausea and Vomiting Likely multifactorial: antibiotic intolerance, NSAID-related gastritis Plan: Ondansetron 4 mg IV q6h PRN Hold metronidazole Gradual diet advancement post-EGD 3. Epigastric Pain , NSAID-Induced Gastritis LA grade B esophagitis Chronic high-dose NSAID use with epigastric pain and reflux symptoms; possible NSAID-related gastritis or peptic ulcer disease. Plan: EGD performed today, LA grade B esophagitis present Continue IV Protonix 40 mg BID Strict avoidance of NSAIDs Transition to oral PPI when tolerating PO 4. Mild Uncomplicated Sigmoid Diverticulitis 5. Severe Unintentional Weight Loss CT shows mild sigmoid diverticulitis without abscess or perforation; diarrhea unlikely due to diverticulitis. Plan: Continue Augmentin monotherapy for 5 days Outpatient colonoscopy in 6 -8 weeks Scheduled patient for Outpatient visit on 05/18/2024 at 3:30 p.m. Nutritional assessment Monitor weight and labs Evaluate further if persistent symptoms 6. Hypertensive Urgency 7. Hypothyroidism 8. Obstructive Sleep Apnea 9. Morbid Obesity Management per hospitalist team Code Status: Full code status Claudia Eugene MD Internal Medicine Resident, PGY-2 Date of Service: May 05, 2025 Billing Provider: BRAYDEN WASHINGTON MD, GAURAV, RES May 05, 2025 11:26
[2025-05-05 12:27] LABS: CHOL/HDL RATIO 2.1 (0.00-4.99); LDL CHOLESTEROL 77 MG/DL (50-100)
[2025-05-05] MEDS ORDERED: PROPOFOL IV ONE (12:32)
--- NOTE | 2025-05-05 14:50 | RADIOLOGY REPORT ---
CHEST RADIOGRAPH INDICATION: Screening TECHNIQUE: Single frontal view of the chest was obtained COMPARISON: CHEST,SINGLE VIEW on DOS: 12/26/20 FINDINGS: Lines and Tubes: None Lungs: Clear Pleura: No effusion. No pneumothorax. Cardiomediastinal contours: Unremarkable Bones: Unremarkable IMPRESSION: 1. No acute disease. hs:y
[2025-05-05 15:28] LABS: OCCULT BLOOD STOOL POSITIVE (Neg)
--- NOTE | 2025-05-05 15:41 | PROGRESS NOTE- Residence ---
Progress Note - Resident Providers to CC Resident Creating Document: KRISH BORJA RES ~ Antibiotic Timeout Antibiotic Ordered?: Yes Subjective Patient seen and examined today. Comfortably sitting in the bed. Had one loose watery bowel movement this morning. Stated that she feels better now. Got an EGD done this morning Objective Vital Signs Date Time Temp Pulse Resp B/P (MAP) Pulse Ox O2 Delivery O2 Flow Rate FiO2 05/05/25 13:10 72 16 129/64 (85) 98 Nasal Cannula 2.0 05/05/25 12:42 97.3 Result Diagram: 05/05/25 0742 05/05/25 0742 General: Alert and oriented x 4. Obese female HEENT: Normocephalic and atraumatic. Pupils equal round and reactive to light and accommodation. Extraocular movements intact. Oral and nasal mucosa moist Neck: Trachea is in midline. No masses or JVD Lungs: Bilateral normal breath sounds. No crackles, rhonchi or wheezes Heart: Regular rate and rhythm. S1-S2 normal. No rubs or murmurs Abdomen: Soft, and nondistended. Mild epigastric tenderness present. Bowel sounds present ALBERENE STONE SETTER: No gross sensory or motor abnormalities Extremities: No cyanosis, clubbing or edema Skin: Warm and dry Assessment Assessment A 65-year-old female with PMH of HTN hypothyroidism presented to the ED in view of abdominal pain, nausea vomitings and diarrhea since one month. Patient is admitted for the evaluation management of acute sigmoid diverticulitis and possible GERD/gastritis with possible upper GI bleed Plan Plan Mild acute sigmoid diverticulitis Grade 1A Initially started on IV ciprofloxacin 400 mg IV q.12h and IV metronidazole 500 mg right [facility] Gi team changed antibiotics to Augmentin 875/125 mg p.o. b.i.d. Clear liquid diet. Informed nurse to advance diet to full liquids for dinner tonight Decreased normal saline to 75 cc/hour Leukocytosis-likely due to volume depletion. Improving Procalcitonin normal Per GI team, outpatient colonoscopy in 6-8 weeks and follow up appointment on 05/18/2024 at 3:30 p.m. Lactic acidosis. Trend lactic acid q.2h tele came down to normal Pending C diff. In isolation for pending C diff Also received Reglan and Compazine for nausea Did not have any episodes of vomiting since morning Continue Zofran 4 mg IV q.6h p.r.n. for nausea/vomiting Strongly recommended to quit marijuana and educated about cannabinoid hyperemesis syndrome LA grade B reflux esophagitis Stool Occult blood positive Also has chronic NSAID use EGD done today which showed nonbleeding LA grade B reflux esophagitis, normal stomach which was biopsied Patient is on clear liquid diet Continue Protonix 40 mg IV b.i.d. Follow up with GI appointment Strongly recommended to stop NSAID use She needs to follow up with the biopsy reports H&H stable. No anemia. Vitals stable Uncontrolled hypertension Elevated systolic blood pressure: 200/95 Received two doses of labetalol 10 mg IV time of admission Now, blood pressure around 130/80 mmHg Per patient, her blood pressure at home is usually around 140/90 mmHg Elevated RBC count - resolved Possibly due to volume depletion Hypothyroidism TSH normal limits Patient does not remember the dosage of levothyroxine Awaiting home medication reconciliation MARY CPAP at night daily Morbid obesity Outpatient follow up for weight reduction Code status: Full code Diet: Clear liquid diet - advance to full liquid tonight DVT prophylaxis: Lovenox 40 mg subcutaneous daily # pending home medication reconciliation Krish Borja MD Internal Medicine Resident, PGY 3 Date of Service: May 05, 2025 Billing Provider: KATHERIN RAMIREZ MD Common Visit Codes: [id number] INP/OBS CARE(HIGH) KRISH BORJA RES May 05, 2025 15:41 KATHERIN RAMIREZ MD May 05, 2025 19:47
[2025-05-05 16:08] LABS: C DIFF ANTIGEN NEGATIVE (NEGATIVE); C DIFF SPECIMEN=DIARRHEA? ACCEPTABLE; C DIFFICILE TOXINS A&B NEGATIVE (Neg)
[2025-05-05] MEDS: amox tr/potassium clavulanate 875/125mg TAB PO SCH (17:41)
[2025-05-05] MEDS: enoxaparin 40mg/0.4ml syringe SUBCUT SCH (21:55)
[2025-05-06 04:44] LABS: CREATININE 0.81 MG/DL (0.40-0.90); TOTAL CARBON DIOXIDE 26.0 MMOL/L (24-32); eCRCL 77 ML/MIN; eGFR 71 ML/MIN
[2025-05-06 04:57] LABS: MEAN PLATELET VOLUME 8.7 FL (7.4-10.4); RED CELL DISTRIBUTION WIDTH 13.3 % (11.5-14.5)
[2025-05-06 06:00] VITALS: BP 129/66; PULSE 65; RESP 16; TEMP 98; O2SAT 96
[2025-05-06 08:00] VITALS: RESP 16; O2SAT 96
--- NOTE | 2025-05-06 08:10 | PROGRESS NOTE- Residence ---
Progress Note - Resident Providers to CC Resident Creating Document: CLAUDIA EUGENE RES ~ Antibiotic Timeout Antibiotic Ordered?: Yes Subjective Patient seen and examined today. Claims of significant improvement in symptoms. Patient was having breakfast and was tolerating full liquid diet. She claims of significant improvement in heartburn. She had 7-8 diarrhea episodes yesterday but reports improvement and had two episodes since a.m. today. Objective Vital Signs Date Time Temp Pulse Resp B/P (MAP) Pulse Ox O2 Delivery O2 Flow Rate FiO2 05/05/25 22:00 98.2 90 16 123/72 (89) 96 Room Air 05/05/25 20:08 0 21 Result Diagram: 05/06/2542505/06/25425 General: Morbidly obese middle-aged woman, alert, awake, oriented, in no acute distress HEENT: PERRLA, no scleral icterus, pallor, lymphadenopathy, or carotid bruits Cardiovascular: Regular rate and rhythm, S1 and S2 present, no murmurs, rubs, or gallops Respiratory: Clear to auscultation bilaterally, no wheezes, rales, or rhonchi Abdomen: Soft, mild tenderness in the epigastric region, no rebound or guarding, no organomegaly, bowel sounds present Neurologic: No focal neurologic deficits; cranial nerves IIXII intact Extremities: No edema, cyanosis, or clubbing Skin: Warm and dry Advance Care Planning Advanced Care plannin - 30 Minutes Assessment Assessment A 65-year-old female with PMH of HTN hypothyroidism presented to the ED in view of abdominal pain, nausea vomitings and diarrhea since one month. Patient is admitted for the evaluation management of acute sigmoid diverticulitis and possible GERD/gastritis with possible upper GI bleed Plan Plan 1. Chronic Watery Diarrhea Persistent watery diarrhea >1 month, temporally associated with brief metronidazole exposure. Differential: antibiotic-associated diarrhea, C. difficile, other infectious causes, NSAID enteropathy, inflammatory bowel disease, malabsorption Elevated lactic acid, probably secondary to severe dehydration; ordered IV bolus 1000 mL, followed by maintenance fluid at 100 cc/hour Plan: Stool studies: C. difficile PCR: Negative Stool culture: Pending Stool O&P: Pending Fecal leukocytes: No Hold metronidazole due to suspected drug intolerance Maintain IV fluids for hydration Avoid anti-diarrheals until infection ruled out Continue Augmentin 875-125 mg for 5 days Monitor CBC daily; procalcitonin negative 2. Nausea and Vomiting Likely multifactorial: antibiotic intolerance, NSAID-related gastritis Plan: Ondansetron 4 mg IV q6h PRN Hold metronidazole Gradual diet advancement post-EGD Is currently on full liquid diet, advance diet as tolerated 3. Epigastric Pain , NSAID-Induced Gastritis LA grade B esophagitis Chronic high-dose NSAID use with epigastric pain and reflux symptoms; possible NSAID-related gastritis or peptic ulcer disease. Plan: EGD performed today, LA grade B esophagitis present Patient was on IV Protonix 40 mg BID, can transition to IV Protonix 40 mg daily Strict avoidance of NSAIDs Transition to oral PPI when tolerating PO 4. Mild Uncomplicated Sigmoid Diverticulitis 5. Severe Unintentional Weight Loss CT shows mild sigmoid diverticulitis without abscess or perforation; diarrhea unlikely due to diverticulitis. Plan: Continue Augmentin monotherapy for 5 days Outpatient colonoscopy in 6 -8 weeks Scheduled patient for Outpatient visit on 05/18/2024 at 3:30 p.m. Nutritional assessment Monitor weight and labs Evaluate further if persistent symptoms 6. Hypertensive Urgency 7. Hypothyroidism 8. Obstructive Sleep Apnea 9. Morbid Obesity: BMI: 47.4 Management per hospitalist team Code Status: Full code status Claudia Eugene MD Internal Medicine Resident, PGY-2 Date of Service: May 06, 2025 Billing Provider: BRAYDEN WASHINGTON MD, GAURAV, RES May 06, 2025 08:10
[2025-05-06 09:32] VITALS: BP_SYST 129; PULSE 65
[2025-05-06] MEDS: normal saline 500ml IV soln 500 ML IV ONE (09:58)
[2025-05-06] MEDS ORDERED: LACT1CAP26 PO (11:41)
[2025-05-06] MEDS ORDERED: AMOX-580 PO (11:41)
[2025-05-06] MEDS ORDERED: PANT-47 PO (11:41)
--- NOTE | 2025-05-06 12:10 | DISCHARGE SUMMARY-Residence ---
Discharge Summary Providers to CC Resident Creating Document: KRISH BORJA RES ~ Discharge Summary Admission Diagnosis: ACUTE SIGMOID DIVERTICULITIS Hospital Course DATE OF ADMISSION: 05/04/25 DATE OF DISCHARGE: 05/06/2025 As in HPI: A 65-year-old female with a past medical history of HTN, hypothyroidism and MARY on CPAP at night presented to the ED presented to the ED in view of abdominal pain, nausea and vomitings that has present since a month. Patient had dull/burning type of pain in the upper epigastrium with a severity of 5/10 with no radiation, no aggravating or relieving factors that has been present over a month that has gradually worsening to the point of reaching out to the hospital. Patient has associated nausea and vomitings over a month, had about 15-20 episodes of vomitings today which had only liquid. Patient endorses loss of appetite and 78 lb of weight loss over a period of one month. Patient also endorses associated intermittent diarrhea which is alternating with lose formed and watery, doubt if it is bloody diarrhea. Patient has on and off fever with associated chills and rigors over a month, temperature has never been do cumented. Patient endorses reflux symptoms and questionable black tarry stools. Patient denies consumption of iron pills. Patient consumes 800 mg of ibuprofen 3 times a day for many years now. Patient denies travel history, sick contacts or similar symptoms in the family. Patient never underwent gastric sleeve surgery. No similar history in the past. Patient denies colonoscopy or upper GI endoscopy in the past. Patient is scheduled for colonoscopy in May at [facility]. During her hospital stay, she was treated for acute sigmoid diverticulitis. She was initially started on ciprofloxacin 400 mg IV q.12h and metronidazole 500 mg IV q.8h. She mentioned that she developed diarrhea after using metronidazole for two days about a month back for bacterial vaginosis. So, GI-changed antibiotics to Augmentin 875/125 mg p.o. b.i.d.. She also complained of some blood in the vomiting, epigastric pain and chronic NSAIDs usage. So, GI-Dr. Bailey was consulted and an EGD was done on 05/05/2025 showed LA grade B reflux esophagitis and recommended changing Protonix to once daily. She initially had high blood pressure-200/95 mmHg in the ER and received two doses of labetalol 10 mg IV. She has been having controlled blood pressures for 24 hours and did not require any other additional blood pressure medication. Had about six bowel movements yesterday. She states that her diarrhea has improved and is having some formed stool. Denies any nausea, vomiting, abdominal pain and stated that she feels good to go home. Today, she is discharged home with oral antibiotics and discharge instructions to follow up with GI. General: Alert and oriented x 4. Obese female HEENT: Normocephalic and atraumatic. Pupils equal round and reactive to light and accommodation. Extraocular movements intact. Oral and nasal mucosa moist Neck: Trachea is in midline. No masses or JVD Lungs: Bilateral normal breath sounds. No crackles, rhonchi or wheezes Heart: Regular rate and rhythm. S1-S2 normal. No rubs or murmurs Abdomen: Soft, nontender nondistended. Bowel sounds present [employer]ENT: No gross sensory or motor abnormalities Extremities: No cyanosis, clubbing or edema Skin: Warm and dry Discharge instructions: Please continue to take antibiotic-Augmentin for nine more days - twice a day. Please take full liquids and slowly advance your diet as tolerated. Please follow up with project geophysicist-Dr. Bingham - scheduled Outpatient visit on 05/18/2024 at 3:30 p.m.. Please follow up with the biopsy report. Also recommended to get an outpatient colonoscopy done within 6-8 [id number] with GI-Dr. Bingham. Please check your blood pressure twice daily for the next two weeks and discuss the log with your PCP. Please follow up with the PCP within 1-2 weeks after discharge. Please return to the ER if symptoms persist or get worse. Strongly recommend against NSAIDs [address] [address] Krish Borja MD Internal Medicine Resident, PGY 3 Discharge Diagnosis\Comment: Acute sigmoid diverticulitis LA grade B reflux esophagitis Hypothyroidism Obstructive sleep apnea Morbid obesity Operations\Procedures: EGD on 05/05/[address] Bingham Consultants: GI- Dr. Bingham Complications: None Condition on DC: Stable New Medications: Lactobacillus Rhamnosus (Culturelle) 10 Billion Cell Capsule 1 CAP PO DAILY for 30 Days, #30 CAP 0 Refills Amox Tr/Potassium Clavulanate 875/125 MG (Augmentin 875/125 MG) 875 Mg-125 Mg Tablet 1 TAB PO BID@0830,1730 for 9 Days, #18 TAB Continued Medications: Aspirin (Ecotrin*) 81 Mg Tablet.dr 1 TAB PO DAILY, #30 TAB.SR ONDANSETRON ODT 4mg tablet (Ondansetron Odt) 4 Mg Tab.rapdis 1 TABLET PO Q6H PRN for nausea/vomiting, #20 TABLET Pantoprazole Sodium (PROTONIX tablet) 40 Mg Tablet.dr 1 TAB PO DAILY for 30 Days, #30 TAB 0 Refills (This prescription has been renewed) Discharge Summary: As above *Problems/Diagnosis: (1) Acute diverticulitis Total Time Spent on D/C: > 30 Minutes Date of Service: May 06, 2025 Billing Provider: KATHERIN RAMIREZ MD Common Visit Codes: 12039-IIS/OBS DISCH DAY >30min KRISH BORJA RES May 06, 2025 11:51 KATHERIN RAMIREZ MD May 06, 2025 18:26
== END 2025-05-06 12:49 | disposition home or self-care (01) | DRG 378 ==
LOC: ER 21:16 → ED HOLD 23:56 → EDBEDREQ 05-05 01:48 → SUR 3N 05-05 05:38
PROVIDERS: ADMIT Internal Medicine; ATTEND Internal Medicine
PROC: 5A09357 Assistance with Respiratory Ventilation, Less than 24 Consecutive Hours, Continuous Positive Airway Pressure (ICD-10-PCS; 2025-05-05)
PROC: 0DB68ZX Excision of Stomach, Via Natural or Artificial Opening Endoscopic, Diagnostic (ICD-10-PCS; principal; 2025-05-05 12:14)
DX: K29.01 Acute gastritis with bleeding (principal); K57.32 Diverticulitis of large intestine without perforation or abscess without bleeding; K21.01 Gastro-esophageal reflux disease with esophagitis, with bleeding; I16.0 Hypertensive urgency; Z68.42 Body mass index [BMI] 45.0-49.9, adult; J45.909 Unspecified asthma, uncomplicated; E03.9 Hypothyroidism, unspecified; F32.A Depression, unspecified; D50.0 Iron deficiency anemia secondary to blood loss (chronic); E66.01 Morbid (severe) obesity due to excess calories; F41.9 Anxiety disorder, unspecified; K52.9 Noninfective gastroenteritis and colitis, unspecified; G47.33 Obstructive sleep apnea (adult) (pediatric); K21.00 Gastro-esophageal reflux disease with esophagitis, without bleeding; Z88.1 Allergy status to other antibiotic agents
CPT/HCPCS: 36415; 43239; 71045; 74176; 80048; 80053; 80061; 81001; 81025; 82272; 82948; 83036; 83605; 83690; 83735; 84145; 84443; 84484; 85025; 86140; 87040; 87045; 87046; 87081; 87324; 87449; 88305; 88342; 89055; 93005; 94760; 96374; 96375; 99283; 99285; A4615; G0378; J0360; J0744; J0780; J1200; J1644; J1650; J2270; J2405; J2470; J2704; J2765; J3490; J7030; J7040